=== PATIENT | male | born 1945 | race Native Hawaiian/Other Pacific Islander ===

== ENCOUNTER 2020-03-31 03:05 | Emergency (ER) | payer OTHER ==
[~2020-03-31] VITALS: Ht 182.9 cm; Wt 127.0 kg
[2020-03-31 04:11] LABS: POTASSIUM 4.2 mmol/L (3.6-5.2); SODIUM 144 mmol/L (136-145)
[2020-03-31 04:19] LABS: PLATELET COUNT 204 K/uL (142-355)
[2020-03-31 04:20] LABS: PARTIAL THROMBOPLASTIN TIME 25.8 SECONDS (24.5-33.6)
[2020-03-31 06:30] VITALS: BP 134/71; TEMP 98.2
== END 2020-03-31 06:30 | disposition short-term general hospital (02) ==
LOC: ED 03:05
PROVIDERS: Emergency Medicine
PROC: 5A12012 Performance of Cardiac Output, Single, Manual (ICD-10-PCS; principal; 2020-03-31)
DX: I46.9 Cardiac arrest, cause unspecified (principal); R79.1 Abnormal coagulation profile; R06.09 Other forms of dyspnea
CPT/HCPCS: 36415; 36600; 51702; 80053; 82550; 82553; 82805; 83605; 83880; 84484; 85027; 85610; 85730; 92950; 93005; 96360; 96365; 96368; 96374; 96375; 96376; 99285; 99291; J0171; J0461; J1265; J2250